=== PATIENT | male | born 1955 | race Caucasian/White ===

== ENCOUNTER 2021-08-18 23:05 | Observation (INO) | payer MEDICARE ==
[2021-08-19 00:31] VITALS: BMI 26.6
[2021-08-19] MEDS ORDERED: Zolpidem Tartrate 5 MG TAB PO PRN (01:14)
[2021-08-19] MEDS ORDERED: Ondansetron PF 4 MG/2 ML Vial IVP PRN (01:14)
[2021-08-19] MEDS ORDERED: Senokot S 8.6-50 MG TAB PO PRN (01:14)
[2021-08-19] MEDS ORDERED: HYDROcodone/Acetaminophen 5/325 mg Tablet PO PRN (01:14)
[2021-08-19] MEDS ORDERED: Acetaminophen 325 MG TAB PO PRN (01:14)
[2021-08-19] MEDS ORDERED: Calcium Carbonate 500 MG ChewTAB PO PRN (01:14)
[2021-08-19] MEDS ORDERED: Enoxaparin Sodium 80 MG/0.8 ML SYRINGE SC SCH (01:15)
[2021-08-19] MEDS ORDERED: Nitroglycerin 0.4 MG TAB (25 Tab Bottle) SL PRN ×2 (01:15→12:03)
[2021-08-19] MEDS ORDERED: THFOLATE PO SCH (01:30)
[2021-08-19] MEDS ORDERED: VIT B6 PO SCH (01:30)
[2021-08-19] MEDS ORDERED: ALA PO SCH (01:30)
[2021-08-19] MEDS ORDERED: B12 PO SCH (01:30)
[2021-08-19] MEDS ORDERED: [UNRECOGNIZED DRUG - OTHER] PO SCH (01:30)
[2021-08-19 02:10] LABS: ALT (SGPT) 9 U/L (8-55); AST (SGOT) 28 U/L (5-34); Albumin 4.1 g/dL (3.4-4.8); Alkaline Phosphatase 53 U/L (40-110); Bilirubin, Direct 0.3 mg/dL (0.1-0.3); Cardiac Risk 2.7 (Less than 4.5); Cholesterol 106 mg/dl (< 200 Desired); HDL Cholesterol 40 mg/dL (>60 Neg Risk); LDL Cholesterol, Calculated 54 mg/dL; Lipase 101 U/L (8-78); Protein, Total 5.9 g/dL (5.8-8.1)
[2021-08-19 02:17] LABS: Bilirubin, Total 0.7 mg/dL (0.2-1.2); CK (CPK) 127 U/L (30-200); Triglycerides 61 mg/dL (Less than 150)
[2021-08-19 02:35] LABS: CKMB 1.8 ng/mL (0-6.6)
[2021-08-19] MEDS ORDERED: Levothyroxine Sodium 75 MCG TAB PO SCH (06:00)
[2021-08-19 06:27] LABS: CKMB 1.9 ng/mL (0-6.6)
[2021-08-19] MEDS ORDERED: Loratadine 10 MG TAB PO SCH (09:00)
[2021-08-19] MEDS ORDERED: Aspirin 81 mg Enteric Coated Tablet PO SCH (09:00)
[2021-08-19] MEDS ORDERED: Multivit, Therapeutic 1 TAB PO SCH (09:00)
[2021-08-19] MEDS ORDERED: Ubidecarenone 50 MG CAP PO SCH (09:00)
[2021-08-19] MEDS ORDERED: Famotidine 20 MG TAB PO SCH (09:00)
[2021-08-19] MEDS ORDERED: Nebivolol HCl 5 MG TAB PO SCH (09:00)
[2021-08-19] MEDS ORDERED: Lisinopril 10 MG TAB PO SCH (09:00)
[2021-08-19] MEDS ORDERED: Montelukast Sodium 10 mg Tablet PO SCH (09:00)
[2021-08-19] MEDS ORDERED: Amlodipine 5 MG TAB PO SCH (09:00)
[2021-08-19] MEDS ORDERED: Hydrochlorothiazide 25 MG TAB PO SCH (09:00)
[2021-08-19] MEDS ORDERED: Ascorbic Acid 500 mg Chewable Tablet PO SCH (09:00)
[2021-08-19] MEDS ORDERED: Communication Order-Pharmacy FS SCH (09:15)
[2021-08-19] MEDS ORDERED: Sodium Chloride 0.9% 1,000 ML IV SCH (09:30)
[2021-08-19 10:20] LABS: Prothrombin Time 10.7 sec (9.5-12.1)
[2021-08-19 10:22] LABS: Hemoglobin 14.7 g/dL (13.5-17.5); Mean Corpuscular HGB CONC 34.9 g/dL (32.0-36.0); Mean Corpuscular Hemoglobin 30.9 pg (27.0-33.0); Mean Corpuscular Volume 88.6 fl (81.2-95.1); Mean Platelet Volume 11.6 fl (7.4-10.4); Platelet Count 154 10x3/uL (150-450); RBC Distribution Width 13.1 % (11.5-14.5); Red Blood Cell (RBC) Count 4.75 10x6/uL (4.32-5.72); White Blood Cell (WBC) Count 7.6 10x3/uL (3.5-10.5)
[2021-08-19] MEDS ORDERED: Heparin 10,000 UNITS/ 10 ML VIAL ONE (10:38)
[2021-08-19] MEDS ORDERED: Nitroglycerin 50 MG/250 ML BOT 250 ML ONE (10:38)
[2021-08-19] MEDS ORDERED: Bivalirudin 250 MG VIAL ONE (10:39)
[2021-08-19] MEDS ORDERED: Verapamil 5 MG/2 ML VIAL ONE (10:39)
[2021-08-19] MEDS ORDERED: Adenosine 6 MG/2 ML VIAL ONE (10:39)
[2021-08-19] MEDS ORDERED: Lidocaine 1% MPF 2 ML VIAL ONE (10:40)
[2021-08-19] MEDS ORDERED: Fentanyl 100 MCG/2 ML VIAL ONE (10:41)
[2021-08-19] MEDS ORDERED: Midazolam HCl 2 mg/2 ml Vial ONE (10:41)
[2021-08-19] MEDS ORDERED: TICAGRELOR 90 MG TABLET ONE (11:42)
[2021-08-19] MEDS ORDERED: Sodium Chloride 0.9% 200 ML IV PRN (12:03)
[2021-08-19] MEDS ORDERED: Acetaminophen/Codeine 30-300mg Tablet PO PRN ×2 (12:03)
[2021-08-19] MEDS ORDERED: Iopamidol 300 61% 100 ML VIAL FS ONE (14:35)
[2021-08-19 15:42] LABS: SARS-CoV-2 PCR by NAA Not Detected (NotDetected)
[2021-08-19 16:31] LABS: Anion Gap 13 mmol/L (10-20); BUN (Urea Nitrogen) 16 mg/dL (8.4-25.7); Calc. Creatinine Clearance 74 mL/min (70-130); Calcium 9.9 mg/dL (7.8-10.44); Carbon Dioxide 27 mmol/L (23-31); Chloride 102 mmol/L (98-107); Glucose 121 mg/dL (80-115); Potassium 3.4 mmol/L (3.5-5.1); Sodium 139 mmol/L (136-145)
[2021-08-19 16:32] VITALS: BP 114/67; TEMP 98
[2021-08-19] MEDS ORDERED: TICAGRELOR 90 MG TABLET PO SCH (21:00)
[2021-08-19] MEDS ORDERED: Allopurinol 300 MG TAB PO SCH (21:00)
[2021-08-19] MEDS ORDERED: Enoxaparin Sodium 40 MG/0.4 ML SYRINGE SC SCH (21:00)
== END 2021-08-19 17:30 | disposition home or self-care (01) ==
LOC: CSHTELE 23:05
PROVIDERS: ADMIT Student in an Organized Health Care Education/Training Program; ATTEND Family Medicine
DX: I21.4 Non-ST elevation (NSTEMI) myocardial infarction (principal); I25.10 Atherosclerotic heart disease of native coronary artery without angina pectoris; I12.9 Hypertensive chronic kidney disease with stage 1 through stage 4 chronic kidney disease, or unspecified chronic kidney disease; N18.2 Chronic kidney disease, stage 2 (mild); M10.9 Gout, unspecified; E78.5 Hyperlipidemia, unspecified; E03.9 Hypothyroidism, unspecified; M19.90 Unspecified osteoarthritis, unspecified site; Z79.82 Long term (current) use of aspirin; Z82.49 Family history of ischemic heart disease and other diseases of the circulatory system; Z20.822 Contact with and (suspected) exposure to COVID-19
CPT/HCPCS: 80048; 80061; 80076; 82550; 82553; 83690; 83880; 84443; 84484 ×2; 85027; 85347; 85610; 92978; 93005; 93458; 96372; C1753; C1769; C1874; C1887; C1894 ×2; C9600; G0378; U0003; U0005; 36415; 92928; 93010; 99152; 99153; J0153; J0583; J1644; J1650; J2250; J3010; J7050; Q9967